=== PATIENT | female | born 1990 | race Two or more races ===

== ENCOUNTER 2019-11-14 20:29 | Emergency (ER) | payer MEDICAID ==
[~2019-11-14] VITALS: Ht 157.5 cm; Wt 107.0 kg
[2019-11-14 20:50] VITALS: BP 142/88
== END 2019-11-15 00:49 | disposition home or self-care (01) ==
LOC: ER 20:29
DX: S80.12XA Contusion of left lower leg, initial encounter (principal); S80.11XA Contusion of right lower leg, initial encounter; S60.222A Contusion of left hand, initial encounter; S60.221A Contusion of right hand, initial encounter; R10.30 Lower abdominal pain, unspecified; M54.5 Low back pain; Z88.6 Allergy status to analgesic agent; V53.5XXA Driver of pick-up truck or van injured in collision with car, pick-up truck or van in traffic accident, initial encounter; Y93.I9 Activity, other involving external motion; Y92.488 Other paved roadways as the place of occurrence of the external cause; Y99.8 Other external cause status
CPT/HCPCS: 71250; 74176